=== PATIENT | female | born 1980 | race Caucasian/White ===

== ENCOUNTER → 2021-04-16 | Outpatient (CLI) | payer OTHER ==
[~2021-04-16] MED LIST: ADIPEX-P37.5 M1 PO; COLACE100 MG PO; FERROUS SULFAT325 M2 PO; IBU800 MG PO; IBUPROFEN800 MG PO; PERCOCET 5/325 T1 EA PO; VITAMIN D21250 MCG PO; WELLBUTRIN XL150 MG PO
[2021-04-16 09:25] LABS: HEMOGLOBIN 13.8 gm/dl (12.3-15.3); RED BLOOD COUNT 4.46 M/UL (4.00-5.10); WHITE BLOOD COUNT 7.1 K/UL (4.5-11.0)
== END ==
LOC: OPSV2 08:00
PROVIDERS: Obstetrics & Gynecology
DX: Z01.812 Encounter for preprocedural laboratory examination (principal); N93.9 Abnormal uterine and vaginal bleeding, unspecified
CPT/HCPCS: 36415; 81001; 85025

== ENCOUNTER → 2021-04-22 | Day surgery (SDC) | payer OTHER | END | disposition home or self-care (01) | LOC: OR 10:00 | DX: R87.612 Low grade squamous intraepithelial lesion on cytologic smear of cervix (LGSIL) (principal); N93.9 Abnormal uterine and vaginal bleeding, unspecified; F41.9 Anxiety disorder, unspecified; D50.0 Iron deficiency anemia secondary to blood loss (chronic); Z79.1 Long term (current) use of non-steroidal anti-inflammatories (NSAID); Z79.899 Other long term (current) drug therapy; Z80.49 Family history of malignant neoplasm of other genital organs; Z80.9 Family history of malignant neoplasm, unspecified; Z98.51 Tubal ligation status | CPT/HCPCS: J0690; J1100; J1885; J2001; J2250; J2405; J2590; J2704; J2765; J3010; J7030; J7120 ==